=== PATIENT | female | born 1945 | race Caucasian/White ===

== ENCOUNTER 2019-04-10 22:34 | Inpatient (IN) ==
--- NOTE | 2019-04-10 23:29 | EKG Report ---
Test Performed on : 04/10/2019 11:20:30 PM Test Reason : heart rate Blood Pressure : / mmHG Vent. Rate : 044 BPM Atrial Rate : 044 BPM P-R Int : 144 ms QRS Dur : 088 ms QT Int : 478 ms P-R-T Axes : 000 -01 015 degrees QTc Int : 408 ms Marked sinus bradycardia. Abnormal ECG When compared with ECG of 31-JUL-2018 08:31, Sinus rhythm. has replaced Junctional rhythm. QT has shortened Unconfirmed Result
[2019-04-10 23:30] LABS: BASO# 0.05 X1000 (0.0-0.2); BASO% 0.4 % (0.0-0.8); EOS# 0.36 X1000 (0.0-0.7); EOS% 2.7 % (0.0-10.0); HEMATOCRIT 39.3 % (37.0-47.0); HEMOGLOBIN 12.4 g/dL (12.0-16.0); IMM GRAN# 0.05 X1000 (0.0-0.04); IMM GRAN% 0.4 % (0.0-0.5); LYMPH# 2.88 X1000 (1.2-3.4); LYMPH% 21.4 % (20.5-51.1); MCH 29.6 PG (27-31); MCHC 31.6 g/dL (33-37); MCV 93.8 FL (81-99); MONO# 1.18 X1000 (0.11-0.59); MONO% 8.8 % (1.7-9.3); MPV 10.3 FL (7.4-10.4); NEUT# 8.93 X1000 (1.4-6.5); NEUT% 66.3 % (42.2-75.2); PLT 550 X1000 (130-400); RBC 4.19 XMIL (4.2-5.4); RDW 14.1 % (11.5-14.5); WBC 13.45 X1000 (4.8-10.8)
[2019-04-10] MEDS ORDERED: G.I. COCKTAIL PO ONE (23:39)
[2019-04-10] MEDS ORDERED: SODIUM CHLORIDE 0.9% INJ ONE (23:40)
[2019-04-10] MEDS ORDERED: PROTONIX IV ONE (23:40)
[2019-04-10 23:52] LABS: ESTIMATED GFR > 60
[2019-04-10 23:54] LABS: AGAP 13; ALBUMIN 3.7 g/dL (3.5-5.0); ALKALINE PHOSPHATASE 110 U/L (32-104); AMYLASE 13 U/L (20-200); BUN 15 mg/dL (8-22); CALCIUM 9.5 mg/dL (8.8-10.2); CHLORIDE 103 mmol/L (98-107); COSMO 284; CREATININE 0.5 mg/dL (0.5-0.9); GLUCOSE 128 mg/dL (70-104); GOT 32 U/L (10-30); GPT 9 U/L (10-36); LIPASE 30 U/L (13-60); POTASSIUM 3.8 mmol/L (3.5-5.1); SODIUM 141 mmol/L (136-145); TCO2 25 mmol/L (25-35); TOTAL BILIRUBIN 0.45 mg/dL (0.20-1.00); TOTAL PROTEIN 7.4 g/dL (6.3-8.3)
[2019-04-11 00:09] LABS: URINE SOURCE CATH
[2019-04-11 00:34] LABS: BILIRUBIN URINE NEGATIVE (NEGATIVE); BLOOD URINE TRACE (NEGATIVE); COLOR YELLOW; GLUCOSE URINE NEGATIVE (NEGATIVE); KETONE URINE NEGATIVE (NEGATIVE); LEUKOCYTES URINE LARGE (NEGATIVE); NITRITE URINE POSITIVE (NEGATIVE); PH URINE 6.5; PROTEIN URINE 30 mg/dL (NEGATIVE); SP GRAVITY URINE 1.021; TURBIDITY URINE HAZY (CLEAR); UROBILINOGEN URINE NORMAL (NORMAL)
[2019-04-11] MEDS ORDERED: ROCEPHIN 1 GM in NS 50 ML IV ONE (00:40)
[2019-04-11] MEDS ORDERED: NS 1,000 ML IV ONE (00:42)
[2019-04-11] MEDS ORDERED: MORPHINE IV ONE (00:45)
[2019-04-11] MEDS ORDERED: ZOFRAN IV ONE (00:45)
[2019-04-11 01:02] LABS: UR EPITHELIAL CELLS <10 /HPF (<10); URINE BACTERIA 4+ /HPF; URINE WBC TNTC /HPF (<10)
[2019-04-11 01:03] LABS: URINE CASTS NONE SEEN; URINE CRYSTALS CA OXALATE PRESENT; URINE SMALL ROUND CELLS NONE SEEN; URINE YEAST NONE SEEN
[2019-04-11] MEDS ORDERED: VALIUM PO PRN (03:24)
[2019-04-11] MEDS ORDERED: ZOFRAN IV PRN (03:24)
[2019-04-11] MEDS ORDERED: NITROGLYCERIN SL PRN (03:24)
[2019-04-11] MEDS ORDERED: LYRICA PO PRN (03:24)
[2019-04-11] MEDS: LOVENOX SUBQ SCH (04:23)
[2019-04-11] MEDS: NS 1,000 ML IV SCH ×2 (04:23→13:44)
--- NOTE | 2019-04-11 04:48 | HISTORY AND PHYSICAL ---
PRIMARY CARE PHYSICIAN: Dr. Mcbride. CHIEF COMPLAINT: Chest/epigastric pain. HISTORY OF PRESENTING ILLNESS: A 73-year-old female with a history of gastric ulcers, spina bifida, sacral decubitus, who had presented to emergency department with complaint of having chest/epigastric pain. The patient states that it seemed to be more pressure like and was worsening and subsequently she had come to the emergency department. In the ED, she was evaluated and due to her presenting symptoms it was thought that we will place her for observation for further evaluation and management. At the time of my examination, patient denied any headache, fever, chills, hemoptysis, melena, weight changes, but complained of chest discomfort and epigastric pain. PAST MEDICAL HISTORY: Includes gastric ulcer, left hip decubitus, sacral decubitus, spina bifida, paraplegia. PAST SURGICAL HISTORY: Right knee surgery, cholecystectomy, spinal surgery, hysterectomy. ALLERGIES: Aspirin, fentanyl, Robaxin. CURRENT MEDICATIONS: Include Valium 5 mg p.o. daily, famotidine 20 mg p.o. daily, pregabalin 75 mg p.o. daily. SOCIAL HISTORY: She smokes 2 packs per day. Denies any history of alcohol or illicit drug use. FAMILY HISTORY: Positive for coronary artery disease in mother and father. REVIEW OF SYSTEMS: Fourteen point review of systems as listed in HPI. Other systems negative. PHYSICAL EXAMINATION: GENERAL: Cooperative, friendly female. She is resting comfortably now. VITAL SIGNS: Temperature 98.2 degrees, pulse 42, respirations 20, blood pressure 116/51. HEENT: Atraumatic, normocephalic. Extraocular movements intact. PERRLA. NECK: No masses. CHEST: Clear to auscultation. CARDIOVASCULAR: Regular rate and rhythm. ABDOMEN: Soft, positive bowel sounds. EXTREMITIES: Trace edema. NEUROLOGIC: She is awake, alert, oriented x3. GENITOURINARY: No bladder distention. SKIN: Warm. LABORATORIES AND STUDIES: UA shows positive for nitrite and large leukocytes. Sodium 141, potassium 3.8, chloride 103, CO2 is 25, BUN is 15, creatinine 0.5, glucose 128. Troponin 0.010. WBC 13.45, hemoglobin 12.4, hematocrit 39.3, platelets 550,000. ASSESSMENT: This is a 73-year-old female with a history of gastric ulcers, spina bifida, paraplegia and sacral decubitus, who had presented to emergency department with 1-day history of having chest/epigastric pain. We will place the patient for observation for further evaluation and management. 1. Chest pain. 2. Epigastric pain. 3. Urinary tract infection. 4. Sacral decubitus. PLAN: 1. We will admit patient to medical floor with telemetry. 2. Continue with cardiac workup. Check EKG, serial cardiac enzymes. We will use nitroglycerin and morphine p.r.n. chest pain. 3. We will consult Cardiology. 4. Continue patient on a PPI. 5. We will check a urine culture and start patient on IV antibiotics. 6. We will continue with wound care for her decubitus. 7. We will put patient on DVT prophylaxis with Lovenox. 8. We will continue to follow, and reassess and make further recommendation based on patient's clinical course. cc: Sabas Shine MD
--- NOTE | 2019-04-11 05:32 | EKG Report ---
Test Performed on : 04/11/2019 05:23:45 AM Test Reason : epigastric pain Blood Pressure : / mmHG Vent. Rate : 054 BPM Atrial Rate : 054 BPM P-R Int : 166 ms QRS Dur : 086 ms QT Int : 426 ms P-R-T Axes : 034 -09 003 degrees QTc Int : 403 ms Sinus bradycardia. Low voltage QRS Cannot rule out Anterior infarct , age undetermined Abnormal ECG When compared with ECG of 10-APR-2019 23:20, (Unconfirmed) No significant change was found Confirmed by Papo RAMIREZ, P.J.M ([id number]) on 04/13/2019 6:30:00 PM
[2019-04-11] MEDS ORDERED: PROTONIX PO SCH (07:00)
--- NOTE | 2019-04-11 08:10 | Diag Imaging Result Doc PS360 ---
EXAM: CHEST-PORTABLE INDICATION: cp TECHNIQUE: One view COMPARISON: 07/31/2018 FINDINGS: Inspiration is suboptimal. There is suggestion of minimal subsegmental atelectasis at the lung bases. The lungs are grossly clear, otherwise. There is no discrete pleural fluid collection or pneumothorax. The cardiomediastinal silhouette and central vasculature are grossly unremarkable. IMPRESSION: Low lung volumes and suggestion of mild bibasilar subsegmental atelectasis. No definite acute pathology by plain radiograph, otherwise. Electronically signed by Vladimir Gallardo 04/11/2019 8:08 AM
[2019-04-11] MEDS ORDERED: G.I. COCKTAIL PO ONE (11:19)
[2019-04-11 11:24] LABS: AGAP 12; BUN 11 mg/dL (8-22); CALCIUM 9.3 mg/dL (8.8-10.2); CHLORIDE 105 mmol/L (98-107); COSMO 282; CREATININE 0.4 mg/dL (0.5-0.9); ESTIMATED GFR > 60; GLUCOSE 84 mg/dL (70-104); POTASSIUM 4.1 mmol/L (3.5-5.1); SODIUM 142 mmol/L (136-145); TCO2 25 mmol/L (25-35)
[2019-04-11] MEDS: ZOSYN 3.375 GM in NS 50 ML IV SCH ×3 (11:43→21:33)
[2019-04-11] MEDS: CARAFATE LIQUID PO SCH ×3 (11:43→21:33)
--- NOTE | 2019-04-11 20:17 | CARDIOLOGY CONSULTATION ---
DATE: 04/11/2019 CHIEF COMPLAINT ON PRESENTATION: Belly pain. HISTORY OF PRESENT ILLNESS: Ms Camacho is a 73-year-old white female with a history of gastric ulcers, spina bifida and sacral decubitus. She presented with a relatively acute onset of a stabbing, throbbing pain in her epigastric area with radiation down to the umbilicus as well as radiation over into the left upper quadrant. This occurred while she was sitting and watching TV. There was no exertional component to it. She has no history of heart disease. No history of diabetes. She has not smoked for more than 15 years. She said she did have some cold sweats that broke out with the episode. It lasted for several hours. She had some pain present on examination today and reports it has returned somewhat. She had a what sounds like an EGD around a month ago by Dr. Menard and has been under treatment for gastric ulcers since then. PAST MEDICAL HISTORY: 1. Significant for peptic ulcer disease. 2. History of sacral and hip decubitus. 3. Spina bifida with paraplegia. SOCIAL HISTORY: She quit smoking around 15 years ago. No alcohol use. FAMILY HISTORY: Significant for coronary disease. REVIEW OF SYSTEMS: A 10 system review of systems is negative except for those mentioned in HPI. PHYSICAL EXAMINATION: She is afebrile, heart rate 52, blood pressure 124/60.General: She is in no acute distress. HEENT: Oropharynx is moist. Poor dentition. Eye examination shows pink conjunctivae. White sclerae. Neck: Shows no obvious thyromegaly or thyroid tenderness. Cardiovascular: She sounds to be in a regular rate and rhythm. There is no obvious murmurs. Her JVP is not elevated. Chest: Sounds clear bilaterally. She has no increased work of breathing. Abdomen: Tender to palpation in the epigastric area. There is no rebound, no guarding. Bowel sounds are present. Skin: Warm and dry throughout without any rashes. Neurological: She is paraplegic. She is able to move her upper extremities well without any lateralizing deficit in her upper extremities. DIAGNOSTIC DATA: Her chest x-ray shows low lung volumes, suggestion of mild bibasilar atelectasis. She had 2 electrocardiograms performed. The initial on the at 2320 shows sinus rhythm, somewhat bradycardic at 44 beats per minute. No ischemic changes. Her subsequent EKG occurring on the at 5:23 shows sinus rhythm, low voltage, no obvious signs of ischemic changes. Her white count is 13.4, her hematocrit is 39, platelet count is 550,000. Her sodium is 142, potassium 4.1, BUN 11, creatinine 0.4. Cardiac enzymes have been negative times multiple sets. Her proBNP is minimally elevated. Her urinalysis does appear to be dirty. ASSESSMENT: Ms. Camacho is a 73-year-old female who presented with belly pain. PLAN: At this point I will order an echocardiogram. If this is unremarkable, then I would pursue this from a GI standpoint. She is already on sucralfate as well as b.i.d. Protonix. I have placed a gastroenterology consultation. cc: Jose Morales MD
[2019-04-11] MEDS: PROTONIX PO SCH (21:24)
[2019-04-12] MEDS ORDERED: ROCEPHIN 1 GM in NS 50 ML IV SCH (01:00)
[2019-04-12] MEDS: NS 1,000 ML IV SCH (01:11)
[2019-04-12] MEDS: TYLENOL PO PRN ×2 (02:54→23:21)
[2019-04-12] MEDS: ZOSYN 3.375 GM in NS 50 ML IV SCH ×4 (04:09→22:26)
[2019-04-12] MEDS: LOVENOX SUBQ SCH (04:10)
[2019-04-12] MEDS: CARAFATE LIQUID PO SCH ×4 (04:10→22:25)
[2019-04-12 07:29] LABS: BASO# 0.05 X1000 (0.0-0.2); BASO% 0.9 % (0.0-0.8); EOS# 0.24 X1000 (0.0-0.7); EOS% 4.1 % (0.0-10.0); HEMATOCRIT 35.4 % (37.0-47.0); HEMOGLOBIN 10.9 g/dL (12.0-16.0); IMM GRAN# 0.02 X1000 (0.0-0.04); IMM GRAN% 0.3 % (0.0-0.5); LYMPH# 2.57 X1000 (1.2-3.4); LYMPH% 44.2 % (20.5-51.1); MCH 29.3 PG (27-31); MCHC 30.8 g/dL (33-37); MCV 95.2 FL (81-99); MONO# 0.57 X1000 (0.11-0.59); MONO% 9.8 % (1.7-9.3); MPV 10.5 FL (7.4-10.4); NEUT# 2.36 X1000 (1.4-6.5); NEUT% 40.7 % (42.2-75.2); PLT 486 X1000 (130-400); RBC 3.72 XMIL (4.2-5.4); RDW 14.4 % (11.5-14.5); WBC 5.81 X1000 (4.8-10.8)
[2019-04-12 07:49] LABS: AGAP 11; BUN 9 mg/dL (8-22); CALCIUM 9.3 mg/dL (8.8-10.2); CHLORIDE 110 mmol/L (98-107); COSMO 287; CREATININE 0.5 mg/dL (0.5-0.9); ESTIMATED GFR > 60; GLUCOSE 86 mg/dL (70-104); POTASSIUM 4.2 mmol/L (3.5-5.1); SODIUM 145 mmol/L (136-145); TCO2 24 mmol/L (25-35)
[2019-04-12 08:07] LABS: HEMOGLOBIN A1C 5.1 % (4.8-6.0)
[2019-04-12] MEDS: PROTONIX PO SCH ×2 (09:59→22:26)
--- NOTE | 2019-04-12 15:22 | PROGRESS NOTE ---
DATE: 04/12/2019 SUBJECTIVE: This patient is still complaining of some epigastric pain and headache, I do believe this is more related to a GI type of pain than a cardiac related pain. OBJECTIVE: Vital Signs: Temperature 98.6 degrees, pulse 67, respiratory rate 16, blood pressure 108/31, oxygen saturation 96 on room air. HEENT: Head normocephalic, no trauma. PERRLA. Neck: Supple. No JVD. No masses. Central trachea. Chest: Clear to auscultation. No wheezing. No rales. Abdomen: Soft. Tenderness to palpation at the level of the epigastric area and periumbilical area. Positive bowel sounds. Extremities: Trace edema, no clubbing, no cyanosis. Neurologic: The patient is alert and oriented x3. No focal deficits. She does have a left hip decubitus ulcer, is draining some green discharge, it has a big ulcer. I do not see any necrotic tissue but is really deep probably to the bone, it looks like stage IV. We have requested an evaluation by the wound care nurse and probably we need to get surgery department to see this patient if the wound care nurse recommends that. LABORATORY: WBC 5.8, hemoglobin 10.9, hematocrit 35.4, platelet 486,000. Sodium 145, potassium 4.2, chloride 110, bicarbonate 24, BUN 9, creatinine 0.5, glucose 86, calcium 9.3. ASSESSMENT AND PLAN: 1. Epigastric pain. This patient initially was admitted due to chest pain but this is likely more related to a gastrointestinal issue than a cardiac type issue, Cardiology Department evaluated this patient and they have consulted Gastroenterology Department to evaluate this patient, prior to that I put this patient on proton pump inhibitors and also Carafate to see that helps and it looks like it is helping a little bit. I will continue with same management. I will advance her diet. 2. Urinary tract infection, she does have a gram negative joelle in the culture, she has been placed on Zosyn. I will continue with same management. 3. 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 4. History of spine spina bifida with paraplegia, she is basically bed bound and that is the reason why this patient has a left hip decubitus ulcer. 5. Tobacco abuse. This patient has been highly advised against tobacco use, I will continue with daily cessation education. cc: Stepehn De León MD
--- NOTE | 2019-04-12 19:21 | GASTROENTEROLOGY CONSULTATION ---
DATE: 04/12/2019 REASON FOR CONSULTATION: Abdominal pain. HISTORY OF PRESENT ILLNESS: This is a 73-year-old female who reports a history of gastric ulcers followed by Dr. Menard. She presented to the emergency room with chest pain/epigastric pain. Patient states she had been diagnosed with gastric ulcers by Dr. Menard. She had a recent EGD on 02/09/2019. Pathology findings reviewed showed mild chronic inactive gastritis, H. pylori negative. Postoperative diagnosis showed prepyloric ulcer/gastritis. Patient had previous ulcer in February 2018 that showed reflux esophagitis, gastric ulcer, hiatal hernia. Patient states she has been on medications for her ulcer since then. Per her medicine list the only thing listed was Pepcid but she states she has been taking one medication in the morning and another medication at night. Patient also reports right upper quadrant abdominal pain. She has also reported some diarrhea over the last several weeks. She has noticed some mucus in the stool but no reported melena or bright red rectal bleeding. She has reported some nausea but denied vomiting. PAST MEDICAL HISTORY: Gastric ulcer, left hip decubitus, sacral decubitus, history of spina bifida and paraplegia. PAST SURGICAL HISTORY: Spinal surgery, hysterectomy, cholecystectomy, right knee surgery. ALLERGIES: Aspirin causing anaphylaxis, fentanyl causing vomiting, Robaxin causing a rash. HOME MEDICATIONS: Valium 5 mg as needed, doxycycline 5 mg twice daily, Pepcid 20 mg daily, Levaquin 500 mg daily, Lyrica 75 mg as needed. SOCIAL HISTORY: She smokes 2 packs of cigarettes daily. Denies alcohol or drug use. FAMILY HISTORY: Positive for coronary artery disease in mother and father. REVIEW OF SYSTEMS: Per history of present illness. PHYSICAL EXAMINATION: Vital Signs: Temperature 98.6 degrees, pulse 67, respirations 16, blood pressure 108/31. General: Patient is awake and alert. No acute distress. She has a family member at the bedside. Respiratory: Lung sounds essentially clear. Cardiovascular: Regular rate and rhythm. Abdomen: Tender with palpation otherwise soft and positive bowel sounds. She does have epigastric tenderness and right quadrant tenderness. Extremities: With some lower extremity edema noted. Neurological: Cranial nerves 2-12 grossly intact. Patient is awake, alert, oriented to person, place, and time. LABORATORY: Hematology. WBC 5.81, hemoglobin 10.9, hematocrit 35.4, platelet 486,000. Chemistry. Sodium 145, potassium 4.2, chloride 110, CO2 24, BUN 9, creatinine 0.5, glucose 86, calcium 9.3, total bilirubin 0.45, AST 13, ALT 9, alkaline phosphatase 110, lipase 30, amylase 13. ASSESSMENT AND PLAN: 1. Abdominal pain/chest pain. 2. Urinary tract infection. 3. Sacral decubitus. 4. History of peptic ulcer disease. 5. History of spina bifida. PLAN: Continue current medications. Continue PPI and Carafate has also been started. Patient states she was not on that as an outpatient possibly due to the cost or insurance not covering. Patient states she has been taking Pepcid. We will plan for EGD for evaluation due to history of gastric ulcers. EGD procedure along with benefits and risks discussed with patient and she wishes to proceed. Further plans will be made according to findings. Thank you for this consultation. Dictated by BOBBY Calhoun for Jaiden Steve MD cc: BOBBY Raya MD [facility]
--- NOTE | 2019-04-12 20:49 | CARDIOLOGY PROGRESS NOTE ---
DATE: 04/12/2019 SUBJECTIVE: Ms Camacho reports continued episodes of abdominal pain. She had an episode at lunch today that worsened with oral intake. Presently she has had some mild tenderness in the epigastric area. PHYSICAL: Afebrile. Heart rate 67, blood pressure 108/31.General: She is in no acute distress. Cardiovascular: She sounds to be in a regular rate and rhythm. She has no murmurs, she has no S3. She has no lower extremity edema. Chest: Clear bilaterally. No increased work of breathing. Her abdomen is soft. There is mild to moderate tenderness in the epigastric area. Bowel sounds are intact. LABS: White count 5.8, hematocrit 35, platelet count 486,000. Sodium 145, potassium is 4.2, BUN 9, creatinine 0.5. ASSESSMENT: Ms. Camacho is a 73-year-old female who presented with abdominal pain. PLAN: GI consultation is pending. I will review the echocardiogram. If this is unremarkable then we will likely sign off. A PPI is already in place as well as sucralfate. cc: Jose Morales MD
[2019-04-13] MEDS: CARAFATE LIQUID PO SCH ×5 (03:53→21:39)
[2019-04-13] MEDS: ZOSYN 3.375 GM in NS 50 ML IV SCH ×4 (03:53→21:38)
[2019-04-13] MEDS: LOVENOX SUBQ SCH (03:55)
--- NOTE | 2019-04-13 05:02 | ECHO REPORT ---
ORDER DATE: 04/12/2019 INDICATIONS FOR PROCEDURE: Abdominal pain and evaluate ejection fraction. FINDINGS: 1. Right atrium appears normal size. 2. Mild tricuspid regurgitation. RV systolic pressure of 36. 3. RV is mildly enlarged with mild reduction in RV systolic function. 4. No significant pulmonic insufficiency. 5. Mild left atrial enlargement with a volume index of 32. 6. No mitral valve prolapse. Mild mitral regurgitation. 7. No pulmonic insufficiency. 8. Normal LV size, end-diastolic dimension of 4.1. Mild left ventricular hypertrophy with a posterior and interventricular septal wall thickness 1.2 cm each. Normal LV systolic function. Estimated EF of 60% to 65% with normal wall motion. 9. Aortic valve opens well. No evidence of stenosis or insufficiency. The valve is trileaflet. 10. Aorta appears normal visualized segments. 11. No pericardial effusion seen. cc: Jose Morales MD
[2019-04-13 07:51] LABS: AGAP 12; ALB/GLOB RATIO 0.8; ALBUMIN 2.8 g/dL (3.5-5.0); ALKALINE PHOSPHATASE 122 U/L (32-104); BUN 10 mg/dL (8-22); CALCIUM 9.5 mg/dL (8.8-10.2); CHLORIDE 108 mmol/L (98-107); COSMO 284; CREATININE 0.5 mg/dL (0.5-0.9); ESTIMATED GFR > 60; GLUCOSE 95 mg/dL (70-104); GOT 26 U/L (10-30); GPT 20 U/L (10-36); SODIUM 143 mmol/L (136-145); TCO2 23 mmol/L (25-35); TOTAL BILIRUBIN 0.41 mg/dL (0.20-1.00); TOTAL PROTEIN 6.1 g/dL (6.3-8.3)
[2019-04-13] MEDS: PROTONIX PO SCH ×4 (08:52→21:39)
[2019-04-13] MEDS ORDERED: OFIRMEV 1000 MG/ISOTONIC SOLN 1,000 MG/100 ML BOTTLE IV ONE (09:14)
[2019-04-13] MEDS ORDERED: XYLOCAINE-MPF 2% ONE (10:56)
[2019-04-13] MEDS ORDERED: DIPRIVAN 1% ONE ×2 (10:56→14:11)
[2019-04-13] MEDS ORDERED: ROBINUL ONE (12:17)
--- NOTE | 2019-04-13 12:36 | ENDOSCOPY OPERATIVE NOTE ---
[facility] ENDOSCOPY OPERATIVE NOTE , EGD PROCEDURE REPORT PATIENT: Ella Camacho ADMISSION DATE: 04/13/2019 MR#: [id number] : 1945 PROCEDURE DATE: 04/13/2019 SURGEON: Jaiden Steve MD STATUS: inpatient SALES SERVICE REP: Michaela Rubin and Kera Hancock PREOPERATIVE DIAGNOSIS: The patient is a 73 yr old female here for an EGD due to epigastric abdomina l pain and History of gastric ulcer.. PROCEDURE PERFORMED: EGD, diagnostic MEDICATIONS: Per Anesthesia TOPICAL ANESTHETIC: none CONSENT: The patient understands the risks and benefits of the procedure and understands that these r isks include, but are not limited to: sedation, allergic reaction, infection, perforation and/or bleeding. Alternative means of evaluation and treatment include, among others: physical exam, x-rays, and/or surgical intervention. The patient elects to proceed with this endoscopic procedure. HISORY AND PHYSICAL: 04/13/2019 DESCRIPTION OF PROCEDURE: During intra-op preparation period all mechanical and medical equipment was checked for proper function. Hand hygiene and appropriate measures for infection prevention was taken. After the risks, benefits and alternatives of the procedure were thoroughly explained, Informed consent was verified, confirmed and timeout was successfully executed by the treatment team. The patient was anesthetized with topical anesthesia and the [id number] ([id number]) endoscope was introduced through the mouth and advanced to the second portion of the duoden um. Retroflexion was performed in the stomach and revealed Submucosal nodule, cardia.. The gastroscope was then slowl y withdrawn and removed. ESOPHAGUS: The mucosa of the esophagus appeared normal. STOMACH: A single soft and subepithelial nodule was located in the cardia. The nodule size was 9mm. The stomach otherwise appeared normal. Ulcer has healed. DUODENUM: The duodenal mucosa showed no abnormalities. SPECIMENS REMOVED: No ADVERSE EVENTS: There were no complications. POSTOPERATIVE DIAGNOSIS: 1. The mucosa of the esophagus appeared normal 2. 9mm nodule was located in the cardia 3. The stomach otherwise appeared normal 4. Ulcer has healed 5. The duodenal mucosa showed no abnormalities RECOMMENDATIONS: 1. Resume pre-procedure medications 2. Obtain a CT Scan 3. Resume previous diet 4. We will follow. 5. Return to floor when standard parameters are met REPEAT EXAM: Jaiden Steve MD eSigned: Jaiden Steve MD 04/13/2019 12:35 PM cc: Jeff Mcbride MD PATIENT NAME: Ella Camacho MR#: [id number]
[2019-04-13] MEDS ORDERED: FENTANYL ONE (14:01)
[2019-04-13] MEDS ORDERED: BLISTEX MEDICATED BERRY LIP BALM TOP PRN (16:39)
[2019-04-13] MEDS: D5 1/2 NS + KCL 10 MEQ 1,000 ML IV SCH (16:56)
--- NOTE | 2019-04-13 17:17 | Diag Imaging Result Doc PS360 ---
CT ABDOMEN/PELVIS W/WO CONTRAS - 04/13/2019 INDICATION: Abdominal pain COMPARISON: 07/31/2018, 04/04/2018 FINDINGS: On the noncontrast exam, there are no new calcifications. On the contrast-enhanced exam, there is some linear atelectasis in the lung bases but no infiltrates. Heart size is top normal. Stable small cyst in the liver. Stable cholecystectomy clips. Stable cysts in the left kidney. Otherwise all abdominal organs are normal. No biliary dilation. There is a suprapubic catheter in the urinary bladder. Uterus is absent. Rectum is normal. No bowel obstruction or inflammation. No free air or free fluid. No adenopathy. There is a left ischial decubitus ulcer nearly all the way to the bone. This is stable from prior. No fluid collections. No new soft tissue abnormalities. IMPRESSION: No change from prior. This exam was performed using automated exposure control, adjustment of mA or kV according to patient size, and/or use of iterative reconstruction technique Electronically signed by Rafy Huang 04/13/2019 5:15 PM
--- NOTE | 2019-04-13 18:23 | PROGRESS NOTE ---
DATE: 04/13/2019 SUBJECTIVE: Today Ms. Camacho refers to continual hurting in the epigastrium. Her EGD for most part was unremarkable. Lipase was also unremarkable. She is pending a CT scan of the abdomen and pelvis. OBJECTIVE: Vital signs: Blood pressure is 108/72, pulse of 63, respirations 20, temperature is 98.1 degrees. General: Ms. Camacho is a 73-year-old female. She is in bed in no distress. HEENT: Mucosa is dry. Anicteric. Acyanotic. Neck: Supple. Chest: Clear to auscultation. Cardiovascular: Regular rate and rhythm. Gastrointestinal: Abdomen is soft. There is some tenderness in the epigastrium. Extremities: No pedal edema. There is a dressing over the left hip. Central nervous system: Patient is awake, alert, oriented. Patient is paraplegic. LABORATORY DATA: CBC was not available for today. Chemistry is reviewed, unremarkable. The patient's current antimicrobials have all been reviewed. ASSESSMENT: 1. Epigastric pain with unremarkable esophagogastroduodenoscopy. There is a CT scan ordered. We are going to follow up accordingly. 2. Recurrent catheter-associated urinary tract infection. Patient is currently on antimicrobial therapy. 3. Stage IV left hip decubitus ulcer. 4. History of spina bifida with paraplegia. 5. Tobacco use. Patient has been counseled. 6. Clinical volume depletion. Patient has been started on IV fluids. 7. Gram-negative joelle urinary tract infection and wound infection on the thigh. We will still wait on the ID and sensitivity. cc: Sourav Cruz MD
[2019-04-14] MEDS: LOVENOX SUBQ SCH (03:31)
[2019-04-14] MEDS: ZOSYN 3.375 GM in NS 50 ML IV SCH ×4 (03:31→22:48)
[2019-04-14] MEDS: CARAFATE LIQUID PO SCH ×5 (03:31→22:49)
[2019-04-14] MEDS: D5 1/2 NS + KCL 10 MEQ 1,000 ML IV SCH ×2 (04:52→18:37)
[2019-04-14] MEDS: PROTONIX PO SCH ×2 (09:00→22:49)
--- NOTE | 2019-04-14 12:46 | PROGRESS NOTE ---
DATE: 04/14/2019 SUBJECTIVE: This morning, Ms. Camacho refers to be doing fairly okay. Epigastric pain has significantly improved. Ms Camacho also tells me today that 4 days prior to coming in, she was having a lot of chills and subjective fevers and also that she realized her urine had a strong smell and seemed to be more concentrated. OBJECTIVE: Vital signs: This morning blood pressure is 132/61, pulse of 78, respirations 16, temperature is 98.9 degrees. The patient is saturating 93%. General: Ms. Camacho is a 73-year- old morbidly obese, female. BMI is 35.7. She is in bed, no distress. HEENT: Mucosa is pink and moist. Anicteric. Acyanotic. Neck: Supple. Chest: Good air entry bilaterally. There were no crepitations, no rhonchi. Cardiovascular: Regular rate and rhythm. Gastrointestinal: Abdomen is soft, distended but nontender. Bowel sounds present. There is a suprapubic catheter in place. Extremities: No pedal edema. The gluteus has a wound which has dressing over it. After removed the dressing, the wound base looks remarkably clean with adequate granulation tissue. Central nervous system: Patient is awake, alert, and oriented. LABORATORY DATA: The microbiology data has come back. Urine is cultures positive for Pseudomonas and Serratia marcescens. The Pseudomonas is resistant to levo. The wound culture also shows the same Pseudomonas aeruginosa. ASSESSMENT: 1. Epigastric pain with unremarkable EGD and CT scan, presumably related to gastroesophageal reflux disease. The patient is on Protonix. 2. Recurrent catheter-associated urinary tract infection. The current culture is growing Pseudomonas. The patient is on Zosyn. We will consult ID to evaluate the patient. 3. Stage IV left hip decubitus ulcer with a culture also showing Pseudomonas. The ulcer looks remarkably clean. 4. History of spina bifida with paraplegia. 5. Tobacco use and abuse prior to hospitalization. Patient has been counseled. 6. Clinical volume depletion. The patient is on IV fluids. She looks remarkably better than yesterday. PLAN: In general, I think Ms. Camacho is doing well. Epigastric discomfort has significantly improved on the Carafate and a PPI. She is currently on Zosyn which covers well the current pathogens in her urine and her wound. Because there is no oral substitute for the antimicrobial coverage, we will get ID to evaluate her and make a determination on her antimicrobial coverage on an outpatient basis before she gets discharged hopefully today. cc: Sourav Cruz MD MTDD
--- NOTE | 2019-04-14 13:46 | PROVIDER DOCUMENTATION ---
This chart was entered by Samina Burdick Scribe, acting as scribe for Moy Ha MD. HPI-Abdominal Pain/GI Problem - General Source: patient, EMS <Moy Ha - Last Filed: 04/14/19 13:45> - General Source: patient, family (brother) - History of Present Illness-ABD Nature of Presenting Problems: Patient was brought by EMS for worsening of abdominal pain that started few months ago and now has N/V/D. She has been on abx for sacral and left hip decub ulcer Abdominal Pain Onset Location: reports: LUQ, LLQ Quality of Pain: reports: aching, sharp Severity in ED: reports: mild, moderate Onset/Duration: reports: other (months, got worse todsy) Timing: reports: still present Activities at Onset: reports: none Modifying Factors: improves with: nothing Associated Symptoms: reports: diarrhea, nausea, vomiting <OtuguorZeuspomudinora Cartagena. - Last Filed: 04/21/19 20:52> - General Stated Complaint: abdominal pain Time Seen by Provider: 04/10/19 23:05 Allergies/Adverse Reactions: Patient Allergies Allergy/AdvReac Type Severity Reaction Status Date / Time aspirin Allergy ANAPHYLAXIS Verified 04/04/18 17:24 fentanyl Allergy VOMITING Verified 04/04/18 17:24 methocarbamol [From Robaxin] Allergy RASH Verified 04/04/18 17:24 Home Medications: Home Medication List Medication Instructions Recorded Confirmed Last Taken Type Diazepam [Valium] 5 mg PO PRN PRN #10 tablet 04/14/18 04/11/19 10/28/18 Rx Pregabalin [Lyrica] 75 mg PO PRN PRN 10/24/18 04/11/19 10/28/18 History Famotidine [Pepcid] 20 mg PO DAILY 04/11/19 04/11/19 Unknown History Pantoprazole [Protonix] 40 mg PO BID #60 tab 04/15/19 Unknown Rx Sucralfate [Carafate Liquid] 1 gm PO Q6H #1 udc 04/15/19 Unknown Rx Review of Systems - Adult - REVIEW OF SYSTEMS - ADULT Constitutional: reports: no symptoms reported Eyes: reports: no symptoms reported Ears, Nose, Mouth & Throat: reports: no symptoms reported Cardiovascular: reports: see HPI Respiratory: reports: no symptoms reported Gastrointestinal: reports: see HPI Genitourinary: reports: no symptoms reported Musculoskeletal: reports: no symptoms reported Integumentary: reports: no symptoms reported Neurological: reports: no symptoms reported Psychiatric: reports: no symptoms reported Endocrine: reports: no symptoms reported Hematologic/Lymphatic: reports: no symptoms reported Allergic/Immunologic: reports: no symptoms reported <Tammy Smith S. - Last Filed: 04/21/19 20:52> Past History - Adult - PAST MEDICAL HISTORY-ADULT Major Childhood Illnesses: reports: denies history Cardiovascular: reports: HTN Respiratory: reports: denies history Gastrointestinal: reports: GERD Obstetrical/Gynecological: reports: other (left breast cancer) Genitourinary: reports: chronic UTI's Musculoskeletal: reports: other (decubitus ulcer right hip/pelvis) Neurological: reports: dementia, other (spina bifida) Endocrine/Immune: reports: denies history Other Conditions: reports: MRSA Additional History: Has PICC line left AC fossa for IV vanco - PRIOR SURGERIES/PROCEDURES Surgical/Procedure History: reports: cholecystectomy, hysterectomy, orthopedic (extremity) - IMMUNIZATION STATUS Childhood Immunizations: See Nurse Assessment Flu Vaccine: See Nurse Assessment - FAMILY HISTORY Family History: reviewed, not pertinent <Moy Ha - Last Filed: 04/14/19 13:45> - PAST MEDICAL HISTORY-ADULT Review of Records: reports: Nursing Assessment Review, Medications Reviewed, Social history reviewed & non-contributory. Major Childhood Illnesses: reports: denies history Cardiovascular: reports: HTN Gastrointestinal: reports: GERD - SOCIAL HISTORY Smoking: other (former smoker) Substance Use: none/never, alcohol (denies) <PatriciamirnaShinmaximiliano S. - Last Filed: 04/21/19 20:52> Physical Exam-General - CONSTITUTIONAL General Appearance: alert - EYES Eyes: PERRL/EOMI, pink conjunctivae - HEAD, EARS, NOSE, MOUTH & THROAT HENMT: normocephalic/atraumatic, moist mucous membranes - NECK Neck: non-tender, full range of motion, supple, normal inspection - RESPIRATORY Respiratory: chest non-tender, lungs clear, normal breath sounds. negative: crackles, rhonchi - CARDIOVASCULAR Cardiovascular: normal peripheral pulses, regular rate, rhythm <Moy Ha - Last Filed: 04/14/19 13:45> - CONSTITUTIONAL General Appearance: appears well, alert - EYES Eyes: PERRL/EOMI - HEAD, EARS, NOSE, MOUTH & THROAT HENMT: normocephalic/atraumatic, moist mucous membranes - GASTROINTESTINAL (ABDOMEN) Abdominal Exam: tenderness (epigastric to left upper abdominal areas) - MUSCULOSKELETAL Back Exam: normal inspection Extremity: normal range of motion - SKIN Integumentary: other (stage 3 decub ulcers left hip and sacral region. Wounds appears clean,no discharge) - PSYCHIATRIC Psych/Mental Status: oriented x 3 <Tammy Smith - Last Filed: 04/21/19 20:52> Progress - PLAN OF CARE/RESULTS Result Diagrams: 04/12/19 06:55 04/13/19 07:03 - EKG 1 Time of EKG reading by physician:: 23:22 EKG Read and Signed by:: Tammy Smith EKG Interpretation (*Must complete 3 of following elements*): Abnormal (rate 44 marked sinus bradycardia) <Moy Ha - Last Filed: 04/14/19 13:45> - PLAN OF CARE/RESULTS Progress/Plan/Lab Results: Vital Signs - 8 hr 04/10/19 22:55 Temperature 98.2 F Pulse Rate 42 L Respiratory Rate 20 Blood Pressure 116/51 O2 Sat by Pulse Oximetry 95 Laboratory Results - last 24 hr 04/10/19 04/10/19 04/10/19 23:10 23:10 23:10 WBC 13.45 H RBC 4.19 L Hgb 12.4 Hct 39.3 MCV 93.8 MCH 29.6 MCHC 31.6 L RDW Std Deviation 14.1 Plt Count 550 H MPV 10.3 Immature Gran % (Auto) 0.4 Neut % (Auto) 66.3 Lymph % (Auto) 21.4 [place] % (Auto) 8.8 Eos % (Auto) 2.7 Baso % (Auto) 0.4 Immature Gran # (Auto) 0.05 H Neut # (Auto) 8.93 H Lymph # (Auto) 2.88 [place] # (Auto) 1.18 H Eos # (Auto) 0.36 Baso # (Auto) 0.05 Sodium 141 Potassium 3.8 Chloride 103 Carbon Dioxide 25 Anion Gap 13 BUN 15 Creatinine 0.5 Estimated GFR/1.73 m2 > 60 BUN/Creatinine Ratio 30 Glucose 128 H Calculated Osmolality 284 Calcium 9.5 Total Bilirubin 0.45 AST 32 H ALT 9 L Alkaline Phosphatase 110 H Troponin T < 0.010 Total Protein 7.4 Albumin 3.7 Globulin 3.7 Albumin/Globulin Ratio 1.0 Amylase 13 L Lipase 30 Urine Source 04/10/19 23:58 WBC RBC Hgb Hct MCV MCH MCHC RDW Std Deviation Plt Count MPV Immature Gran % (Auto) Neut % (Auto) Lymph % (Auto) [place] % (Auto) Eos % (Auto) Baso % (Auto) Immature Gran # (Auto) Neut # (Auto) Lymph # (Auto) [place] # (Auto) Eos # (Auto) Baso # (Auto) Sodium Potassium Chloride Carbon Dioxide Anion Gap BUN Creatinine Estimated GFR/1.73 m2 BUN/Creatinine Ratio Glucose Calculated Osmolality Calcium Total Bilirubin AST ALT Alkaline Phosphatase Troponin T Total Protein Albumin Globulin Albumin/Globulin Ratio Amylase Lipase Urine Source CATH Orders Category Date Time Status Saline Loc DIRECTED Care 04/10/19 23:14 Active Saline Loc DIRECTED Care 04/10/19 23:35 Active NPO Diet 04/10/19 23:35 Active AMYLASE [CHEM] Stat Lab 04/10/19 23:10 Completed CBC WITH ELECTRONIC DIFF [HEME] Stat Lab 04/10/19 23:10 Completed CK PROFILE [SP CHEM] Stat Lab 04/10/19 23:10 Received COMPREHENSIVE METABOLIC PANEL [CHEM] Stat Lab 04/10/19 23:10 Completed LIPASE [CHEM] Stat Lab 04/10/19 23:10 Completed TROPONIN T Stat Lab 04/10/19 23:10 Completed URINALYSIS W/POSS RFLX CULT [URINALYSIS] Stat Lab 04/11/19 00:00 Results Angélicao/Sofi Alk/Al&mg Hydrox [G.i. Cocktail] Med 04/10/19 23:39 Discontinued 30 ml PO NOW ONE Pantoprazole [Protonix] Med 04/10/19 23:40 Discontinued 40 mg IV NOW ONE Sodium Chloride 0.9% Med 04/10/19 23:40 Discontinued 10 ml INJ NOW ONE EKG [EKG] Stat Ther 04/10/19 23:13 Draft EKG [EKG] Stat Ther 04/10/19 23:35 Ordered Result Diagrams: 04/12/19 06:55 04/13/19 07:03 - REASSESSMENT Reassessment #1 Time Reassessed: 00:46 Status: unchanged (still epigatric pain radiating to the left inspite of GI cocktail and iv protonix. Will give morphien and zofran. had profuse n/v to fentanyl in the past. Inview of strong family hx of ID , mom at 51 from ID, Grand ma and brother has ID and patient has ongoing chest pain, discussed admission with pt and Dr Shine eventually accepted admission. She has high wbc and pos UA, will start her on abx and also obtain a cxr) - CONSULTS/PCP/HOSPITALIST Notification #1 *Consult/PCP/Hospitalist*: Dr Shine Time Discussed: 12:50 Consult Disposition: Admit (accepted admission) <Tammy Smith - Last Filed: 04/21/19 20:52> Departure <Moy Ha - Last Filed: 04/14/19 13:45> - Departure Date of Disposition Decision: 04/11/19 Time of Disposition Decision: 01:00 Certified Medical Emergency: Emergent - Critical Care Note This patient required my direct & personal management of CC.: No <Tammy Smith - Last Filed: 04/21/19 20:52> - Departure DIAGNOSIS: Epigastric abdominal pain, Ruled out for myocardial infarction UTI (urinary tract infection) Qualifiers: Urinary tract infection type: site unspecified Hematuria presence: with hematuria Qualified Code(s): N39.0 - Urinary tract infection, site not specified; R31.9 - Hematuria, unspecified Disposition: ADMITTED INPATIENT 09 Condition: Fair Attestation - Physician/ REMA Attestation Patient care was provided by Advanced Practice Provider:: No The physician spent face to face time with patient:: Yes Advanced Practice Provider documentation review:: Supervising physician onsite and consulted in the evaluation and care of this patient. The physician did have a face to face encounter with the patient. <Tammy Smith - Last Filed: 04/21/19 20:52> This chart was documented by the indicated scribe, (Samina Burdick Scribe) and accurately reflects the services I performed and decisions made by , Moy Davison MD, as attested by the provider's signature.
[2019-04-14] MEDS ORDERED: NS 250 ML ONE (14:14)
[2019-04-14 16:23] LABS: INR 1.17; PROTIME 15.1 Seconds (11.0-16.0)
[2019-04-14] MEDS: TYLENOL PO PRN (16:35)
--- NOTE | 2019-04-14 19:58 | INFECTIOUS DISEASE PROGRESS NO ---
DATE: 04/14/2019 CONCLUSION: The patient has symptomatic Pseudomonas and Serratia urinary tract infection. She also has a decubitus ulcer wound which is growing Pseudomonas as well. RECOMMENDATIONS: I have switched the patient to Zosyn. I plan to give it to her in a dose of 4.5 g IV every 8 hours. I am going to put in a consult for a PICC and home IV antibiotics to consist of Zosyn 4.5 g IV every 8 hours. I have requested the patient have an appointment in my office in 2 weeks for a checkup. Approximately 5-7 days after stopping Zosyn, a repeat urine culture will be obtained and if it is negative,then the patient's PICC will be removed. If there still is infection then antibiotic treatment will be continued. DISCUSSION: The patient tells me that she initially came in the hospital with epigastric pain, which has cleared. She has also had fever, nausea, and weakness and she tells me that she has those symptoms when she does have a urinary tract infection. The patient's laboratory studies thus far show a CBC with a white count of 5810, hemoglobin 10.9, and platelet count 486,000. Creatinine is 0.5. GFR is greater than 60. Urine culture grew Pseudomonas and Serratia. Wound culture grew Pseudomonas. The CT scan of the abdomen and pelvis shows some linear atelectasis in the lung bases. There is a left ischial decubitus ulcer nearly all way to the bone. There are no other changes from prior studies. PAST MEDICAL HISTORY/REVIEW OF SYSTEMS: Eyes and ears: She can hear and see well. Neck: No stiffness. Respiratory: No cough or shortness of breath. Cardiac: No chest pain or palpitations. GI: The patient has lost her appetite. She has not been having diarrhea. Bones, joints, muscles: The patient barely can move her legs. They are somewhat edematous. Neurologic: No seizures. The patient has paresis in both legs. She also has decreased sensation in both legs. Integument: Patient has a left hip ulcer, which is being cared for by [facility] in [place]. HISTORY FACULTY MEMBER HISTORY: Patient has never been . She has had a hysterectomy. PREVIOUS HOSPITALIZATIONS AND OPERATIONS: Patient has had surgery 2 spinal surgeries for spina bifida. She has had placement of a suprapubic catheter. She has also had a right total knee arthroplasty and a cholecystectomy. MEDICAL DISEASES: Positive for spina bifida, Meniere disease, and breast cancer. INFECTIOUS DISEASE HISTORY: Positive for pneumonia and UTI. FAMILY HISTORY: Positive for myocardial infarction and cancer. SOCIAL HISTORY: [place] She is single. She lives alone. She has a dog as a pet. She does not smoke cigarettes, drink alcoholic beverages or abuse drugs. She is allergic to aspirin and fentanyl. She is able to get along well with her electric wheelchair and a car officially made for her. PRESENT ILLNESS: The patient's CBC shows a white count of 5810, hemoglobin 10.9 and platelet count 486,000. Creatinine is 0.5. GFR is greater than 60. Urine culture is growing Pseudomonas and Serratia. Wound culture is growing Pseudomonas. PHYSICAL EXAMINATION: Temperature is 98.9 degrees, pulse 78, respirations 16, blood pressure is 132/60. The patient is 5 feet 2 inches tall, weighs 195 pounds.General: This is an obese, elderly female. She is in no acute distress. Head/eyes/ears/nose/throat: She can hear my spoken words and see near objects. There is no drainage coming from her nose or ears. Neck: No pain with movement. Lungs: Clear to auscultation. Cardiovascular: Regular heart rate. Abdomen: Soft and nontender. There is suprapubic catheter in place. The site is not erythematous or purulent. Neurologic: The patient has bilateral leg paresis. She also has decreased sensation to touch. She can move her arms well. Integument: The patient does have a ulcer on her left buttock. She showed me the patient's picture of the left buttock. It is approximately 3 x 2 cm. It has got beefy red tissue in it and no surrounding erythema or purulence. No rash. Thank you for the consult. COMORBIDITIES: The patient had spina bifida. She has got bilateral leg paresis and decreased sensation in both of her legs also. Patient has had 2 spinal surgeries, total right knee arthroplasty, cholecystectomy, hysterectomy and hysterectomy . cc: Leonel Burdick MD
--- NOTE | 2019-04-14 22:55 | GASTROENTEROLOGY PROGRESS NOTE ---
DATE: 04/14/2019 SUBJECTIVE: Patient is awake, alert, lying in her bed. She is eating lunch. She states her nausea has improved some. Pain has improved slightly. EGD findings on 04/13/2019 showed normal esophagus, a 9 mm nodule in the cardia; otherwise, normal stomach. No evidence of gastric ulcers. She had a CT scan, with no change from prior exam. No biliary dilation was noted. No bowel obstruction or inflammation. Left ischial decubitus ulcer nearly all the way to the bone was noted. Stable from prior. OBJECTIVE: Vital Signs: Temperature 98.9 degrees, pulse 78, respirations 16, blood pressure 132/61. General: The patient is awake and alert in no acute distress. GI: Symptoms have improved some. LABORATORY: Hematology: WBC 5.81, hemoglobin 10.9, hematocrit 35.4, platelets 486,000. Chemistry: Sodium 143, potassium 4.0, chloride 108, CO2 of 23, BUN 10, creatinine 0.5, glucose 95. ASSESSMENT AND PLAN: 1. Nausea, improving. 2. Abdominal pain with esophagogastroduodenoscopy showing no evidence of gastric ulcers. Findings showed a nodule in the cardia. 3. Urinary tract infection growing Pseudomonas. Patient is on antibiotics and infectious disease has been consulted. 4. Left hip decubitus ulcer also showing Pseudomonas. Continue current management. 5. History of spina bifida with paraplegia. 6. As far as Gastroenterology is concerned, her symptoms are slowly improving. Recommend to continue her proton pump inhibitor and Carafate. Recommend she follow up with us in the office after discharge. Please reconsult Gastroenterology during this hospitalization as needed. We will currently sign off for now. I have discussed this case with Dr. Steve. Dictated by BOBBY Calhoun for Jaiden Steve MD cc: BOBBY Raya MD
[2019-04-15] MEDS: ZOSYN 3.375 GM in NS 50 ML IV SCH ×2 (04:24→09:54)
[2019-04-15] MEDS: CARAFATE LIQUID PO SCH ×2 (04:25→09:53)
[2019-04-15] MEDS: LOVENOX SUBQ SCH (04:25)
[2019-04-15 07:50] VITALS: BP 110/45
[2019-04-15] MEDS: PROTONIX PO SCH (09:53)
[2019-04-15] MEDS: D5 1/2 NS + KCL 10 MEQ 1,000 ML IV SCH (09:54)
--- NOTE | 2019-04-16 12:25 | DISCHARGE SUMMARY ---
ADMISSION DATE: 04/10/2019 DISCHARGE DATE: 04/15/2019 DISPOSITION: Home with home health. FOLLOWUP: 1. Dr. Mcbride. 2. Dr. Burdick. CONSULTATION DURING THIS ADMISSION: 1. ID was consulted and patient was seen by Dr. Burdick. 2. GI was consulted and patient was seen by Dr. Steve. INVASIVE PROCEDURES DONE DURING THIS ADMISSION: EGD showed a 9 mm nodule was located in cardia of stomach. Otherwise normal. A healed ulcer in the stomach and duodenal mucosa showed no abnormality. IMAGING STUDIES OF SIGNIFICANCE: Chest x-ray showed low lung volumes. Echocardiogram showed an ejection fraction of 60 to 65% with normal wall motion. A CT scan of the abdomen and pelvis showed no change from prior. ADMISSION DIAGNOSES: 1. Epigastric pain. 2. Urinary tract infection. 3. Sacral decubitus ulcer. DIAGNOSES AT THE TIME OF DISCHARGE: 1. Diffuse nonspecific abdominal pain with unremarkable CT scan and EGD. 2. Gastric healed ulcer. 3. Recurrent catheter-associated urinary tract infection with culture growing Pseudomonas aeruginosa and Serratia marcescens. 4. Stage 4 left hip decubitus ulcer with culture growing Pseudomonas. The base of the ulcer looks remarkably clean. 5. History of spina bifida with paraplegia. 6. Tobacco use and abuse prior to hospitalization. 7. Clinical volume depletion, improved. DISCHARGE MEDICATIONS: 1. Valium. 2. Pregabalin 75 mg p.o. p.r.n. 3. Famotidine 20 mg p.o. daily. 4. Pantoprazole 40 mg b.i.d. 5. Carafate 1 g q.6 h. 6. Zosyn 4 g every [address] Burdick. PRESENTING COMPLAINT: Epigastric chest pain. HISTORY OF PRESENTING COMPLAINT: Ms. Camacho is a 73-year-old female who presented to the emergency room because of epigastric and diffuse abdominal pain. She does have history of gastric ulcer. She was admitted for medical evaluation and management. HOSPITAL COURSE: Ms. Camacho was admitted to the medical floor. GI was consulted initially and was evaluated by Dr. Steve. EGD was done which was unremarkable except for a healed gastric ulcer. A CT scan of the abdomen and pelvis was done which did not show any acute abnormality. Ms. Camacho also had some urine discomfort at the time. According to her, her urine had more odor to it and became more concentrated. Culture came back positive for Pseudomonas aeruginosa which was resistant to Levaquin, so ID was consulted. Patient was seen by Dr. Burdick. A decision was made to continue with Zosyn for approximately 14 days. The patient will follow up with Dr. Burdick on outpatient basis. This morning Ms. Camacho is stable. Denies any new complaints. She denies any more abdominal pain. Her vitals are stable with a blood pressure of 110/45, pulse of 65, respirations 16, temperature 98.4 degrees. We think she is stable for discharge. She is going to follow up with Dr. Burdick, Dr. Mcbride and Dr. Steve. All the discharge instructions discussed with her. She voiced understanding. TIME SPENT: Time spent for discharge is 35 minutes. cc: MD Jeff Zambrano MD Leroy F. Harris, MD Khurshid Yousuf, MD
== END 2019-04-15 14:06 | disposition home health service (06) | DRG 391 ==
LOC: SUPCPDRO → ED 22:34 → SUATTDRO 04-11 02:48 → INTOOBSV 04-11 02:48 → 3N 04-11 02:48
PROVIDERS: ATTEND Internal Medicine